=== PATIENT | male | born 1935 | race Hispanic/Latino ===

== ENCOUNTER 2018-05-25 12:00 | Outpatient (CLI) | payer MEDICARE, OTHER ==
--- NOTE | 2018-05-25 16:09 | Mammography Report ---
BONE DEXA:05/25/18 12:00:00 CLINICAL: [age] year-old male at risk for osteoporosis. No comparison. TECHNIQUE: Two site bone DEXA performed on an Hologic scanner. FINDINGS: The average BMD of the lumbar spine L1-L4 is 0.930g/cm squared with a T-score of -1.5 and a Z-score of and a 0.2. The average BMD of the left hip is 0.822g/cm squared with a T-score of -1.4 and a Z-score of -0.1. The left femoral neck BMD is 0.613 with a T score of -2.3 and a Z score of -0.6 IMPRESSION: WHO classification: Osteopenia with increased fracture risk based on both lumbar spine and left hip measurements. RECOMMENDATION: Clinical correlation and routine screening. DEFINITIONS: BMD = Bone Mineral Density T-score = BMD related to mean peak bone mass of young adult (mean expressed in Standard Deviation) Z-score = Age matched BMD expressed in SD World Health Organization (WHO) Diagnostic Criteria Normal T-score > -1 SD Osteopenia T-score between -1 and -2.4 SD Osteoporosis T-score -2.5 SD or below NOTE: BMD is not the only risk factor for fracture. One should also consider factors such as the patient's age, risk of falling, previous osteoporotic fracture, family history of osteoporotic fractures, current smoker, and low body weight. Z-scores are not calculated if >80 years of age.
== END 2018-05-25 12:01 | disposition home or self-care (01) ==
LOC: SPVWC 12:00 → MAMMO 12:00 → SPVWC 12:01
PROVIDERS: ATTEND Internal Medicine
DX: Z13.820 Encounter for screening for osteoporosis (principal); M85.88 Other specified disorders of bone density and structure, other site; F17.210 Nicotine dependence, cigarettes, uncomplicated
CPT/HCPCS: 77080